=== PATIENT | female | born 1995 | race American Indian/Alaskan Native ===

== ENCOUNTER 2017-06-27 01:42 | Emergency (ER) | payer SELFPAY | END 2017-06-27 02:05 | disposition left against medical advice (07) | LOC: ED 01:42 | DX: Z53.21 Procedure and treatment not carried out due to patient leaving prior to being seen by health care provider (principal) ==

== ENCOUNTER 2018-10-24 21:59 | Emergency (ER) | payer SELFPAY ==
--- NOTE | 2018-10-24 22:08 | Emergency Department Report ---
Blank Doc - Documentation Documentation: This is a 23-year-old female that presents with vaginal sores and rash. This initial assessment/diagnostic orders/clinical plan/treatment(s) is/are subject to change based on patient's health status, clinical progression and re- assessment by fellow clinical providers in the ED. Further treatment and workup at subsequent clinical providers discretion. Patient/guardians urged not to elope from the ED as their condition may be serious if not clinically assessed and managed. Initial orders include: 1- Patient sent to [facility] for further evaluation and treatment
[2018-10-24 22:11] VITALS: BP 118/66
[2018-10-24] MEDS ORDERED: ROCEPHIN IM ONE (22:44)
[2018-10-24] MEDS ORDERED: ZITHROMAX PO ONE (22:44)
[2018-10-24] MEDS ORDERED: XYLOCAINE 1% MPF 5 mL INFILTRATI ONE (22:45)
[2018-10-24 22:59] LABS: Bilirubin,Urine NEG (Negative); Blood,Urine MOD (Negative); Color,Urine Yellow (Yellow); Mucus,Urine FEW /HPF
[2018-10-24 23:03] LABS: HCG Qualitative,Urine Negative (Negative)
--- NOTE | 2018-10-24 23:12 | Emergency Department Report ---
ED Female HPI - General Chief complaint: Urogenital-Female Stated complaint: RASH/VAGINAL PAIN/TOOTH PAIN Time Seen by Provider: 10/24/18 22:07 Source: patient Mode of arrival: Ambulatory Limitations: No Limitations - History of Present Illness Initial comments: This is a 23-year-old female that presents with vaginal sores and rash. states 1 week sores are round yellow core pain pt denies vagina discharge or pelvic pain, pt is request prophylitc tx for STD MD Complaint: possible STD Onset/Timin -: week(s) Location: perineum Radiation: non-radiating Severity: moderate Severity scale (0 -10): 5 Quality: burning Consistency: constant Improves with: none Worsens with: movement, other (palpation) Are you Now?: No Last Menstrual Period: 10/24/18 EDC: 07/31/19 Associated Symptoms: rash - Related Data Sexually active: Yes Previous Rx's Medication Instructions Recorded Last Taken Type Doxylamine Succinate/Vit B6 1 each PO Q6HR PRN #30 tablet. 09/17/15 Unknown Rx [Arabella Zeng 10-10 mg Tablet] Nitrofurantoin [place]/M-Cryst 100 mg PO Q12HR #14 capsule 09/17/15 Unknown Rx [Macrobid CAP] Vit Calc,Iron,Folic 1 each PO QDAY #30 tablet 09/17/15 Unknown Rx [ Vitamins] Nitrofurantoin [place]/M-Cryst 100 mg PO Q12HR #14 capsule 11/02/15 Unknown Rx [Macrobid CAP] Doxycycline Monohydrate 100 mg PO BID #20 capsule 10/24/18 Unknown Rx Valacyclovir HCl [Valtrex] 1,000 mg PO BID #20 tablet 10/24/18 Unknown Rx metroNIDAZOLE [Flagyl] 500 mg PO BID 10 Days #20 tab 10/24/18 Unknown Rx Allergies Allergy/AdvReac Type Severity Reaction Status Date / Time risperidone [From Risperdal] Allergy Rash Verified 09/16/15 18:56 ED Review of Systems ROS: Stated complaint: RASH/VAGINAL PAIN/TOOTH PAIN Other details as noted in HPI Constitutional: denies: chills, fever Eyes: denies: eye pain, eye discharge, vision change ENT: as per HPI Respiratory: no symptoms reported Cardiovascular: denies: chest pain, palpitations Endocrine: no symptoms reported Gastrointestinal: denies: abdominal pain, nausea, diarrhea Genitourinary: dyspareunia, other (ulcer perinium ). denies: urgency, dysuria, discharge, abnormal menses Musculoskeletal: denies: back pain, joint swelling, arthralgia Skin: denies: rash, lesions Neurological: denies: headache, weakness, paresthesias Psychiatric: denies: anxiety, depression Hematological/Lymphatic: denies: easy bleeding, easy bruising ED Past Medical Hx - Past Medical History Previous Medical History?: Yes Hx Psychiatric Treatment: Yes (bipolar) Additional medical history: Miscarriage x 1 - Surgical History Past Surgical History?: Yes Additional Surgical History: - Social History Smoking Status: Current Every Day Smoker Substance Use Type: Alcohol - Medications Home Medications: Home Medications Medication Instructions Recorded Confirmed Last Taken Type Doxylamine Succinate/Vit B6 1 each PO Q6HR PRN #30 tablet. 09/17/15 Unknown Rx [Dictrinh Zeng 10-10 mg Tablet] Nitrofurantoin [place]/M-Cryst 100 mg PO Q12HR #14 capsule 09/17/15 Unknown Rx [Macrobid CAP] Vit Calc,Iron,Folic 1 each PO QDAY #30 tablet 09/17/15 Unknown Rx [ Vitamins] Nitrofurantoin [place]/M-Cryst 100 mg PO Q12HR #14 capsule 11/02/15 Unknown Rx [Macrobid CAP] Doxycycline Monohydrate 100 mg PO BID #20 capsule 10/24/18 Unknown Rx Valacyclovir HCl [Valtrex] 1,000 mg PO BID #20 tablet 10/24/18 Unknown Rx metroNIDAZOLE [Flagyl] 500 mg PO BID 10 Days #20 tab 10/24/18 Unknown Rx ED Physical Exam - General Limitations: No Limitations General appearance: alert, in no apparent distress - Head Head exam: Present: atraumatic, normocephalic - Eye Eye exam: Present: normal appearance, PERRL, EOMI Pupils: Present: normal accommodation - ENT ENT exam: Present: mucous membranes moist. Absent: normal orophraynx, TM's normal bilaterally, normal external ear exam - Neck Neck exam: Present: normal inspection, full ROM. Absent: lymphadenopathy - Respiratory Respiratory exam: Present: normal lung sounds bilaterally, chest wall tenderness. Absent: respiratory distress, rales, stridor - Cardiovascular Cardiovascular Exam: Present: regular rate, normal rhythm, normal heart sounds. Absent: systolic murmur, diastolic murmur, rubs, gallop - GI/Abdominal GI/Abdominal exam: Present: soft, tenderness (superpubic ), normal bowel sounds. Absent: distended, guarding, rebound, rigid, bruit, hernia - Rectal Rectal exam: Present: deferred - External exam: Present: erythema, lesions. Absent: swelling, lacerations, e cchymosis, bleeding Speculum exam: Present: erythema, vaginal discharge (yellow green malodorous), cervical discharge. Absent: vaginal bleeding, laceration Bi-manual exam: Absent: cervical motion tendernes - Extremities Exam Extremities exam: Present: normal inspection, full ROM, normal capillary refill. Absent: tenderness - Back Exam Back exam: Present: normal inspection, full ROM, tenderness. Absent: CVA tenderness (R), CVA tenderness (L), muscle spasm, paraspinal tenderness, rash noted - Neurological Exam Neurological exam: Present: alert, oriented X3, CN II-XII intact, normal gait - Psychiatric Psychiatric exam: Present: normal affect, normal mood - Skin Skin exam: Present: warm, dry, intact, normal color. Absent: rash ED Course Vital Signs 10/24/18 22:07 Temperature 97.8 F Pulse Rate 94 H Respiratory 18 Rate Blood Pressure 118/66 [Left] O2 Sat by Pulse 98 Oximetry ED Medical Decision Making - Medical Decision Making vagaal exam consistant with HSV Genital, plan tx for STD exposure, rocephin, azithromycin dc to home with flagyl, valtrax, macrobid, follow up with pcp in 2- 3 dys pt verbalized agreement and understanding of discharge plan. pt will follow up with health department for HIV and HSV screening. pt dc in stable condition pt with nad at at this time. Critical care attestation.: If time is entered above; I have spent that time in minutes in the direct care of this critically ill patient, excluding procedure time. ED Disposition Clinical Impression: STD (sexually transmitted disease) Disposition: DC-01 TO HOME OR SELFCARE Is pt being admited?: No Does the pt Need Aspirin: No Condition: Stable Instructions: Sexually Transmitted Diseases (ED) Prescriptions: Doxycycline Monohydrate 100 mg PO BID #20 capsule metroNIDAZOLE [Flagyl] 500 mg PO BID 10 Days #20 tab Valacyclovir HCl [Valtrex] 1,000 mg PO BID #20 tablet Referrals: CRISTIAN BURTON MD [Staff Physician] - 2-3 Days [facility] [Outside] - 2-3 Days Forms: Work/School Release Form(ED) Time of Disposition: 23:25
== END 2018-10-24 23:32 | disposition home or self-care (01) ==
LOC: ED 21:59
DX: A64 Unspecified sexually transmitted disease (principal); F31.9 Bipolar disorder, unspecified; F17.200 Nicotine dependence, unspecified, uncomplicated; Z98.890 Other specified postprocedural states; Z88.8 Allergy status to other drugs, medicaments and biological substances
CPT/HCPCS: 81001; 81025; 87076; 87086; 87186; 87210; 87591; 96372; 99284; J0696

== ENCOUNTER 2019-10-23 21:08 | Emergency (ER) | payer OTHER ==
[2019-10-23] MEDS ORDERED: propofoL 200 MG/20 ML VIAL IV ONE (21:24)
[2019-10-23] MEDS ORDERED: ETOMIDATE 20 MG/10 ML INJ IV ONE (21:24)
[2019-10-23] MEDS ORDERED: SODIUM CHLORIDE 0.9% 1000 ML 1,000 ML IV ONE ×2 (21:24→21:47)
--- NOTE | 2019-10-23 21:25 | Emergency Department Report ---
ED Upper Extremity Inj HPI - General Chief Complaint: Shoulder Injury Stated Complaint: RT SHOULDER DISLOCATION Time Seen by Provider: 10/23/19 21:10 Source: patient, EMS Mode of arrival: Stretcher Limitations: No Limitations - History of Present Illness Initial Comments: Patient is a 24-year-old female that presents emergency room with complaints of right shoulder pain. Patient states that her shoulder pain is a 10 out of 10. Patient states she was swinging a gallon jug of water and had a pop and a severe pain. Patient states she was trying to throw the jug of water. Patient states the pain is a 10 out of 10. Pain states the pain is better with rest and worse with movement. Patient states she is never had this pain or dislocated shoulder before. Patient states she has had anesthesia in the past without any difficulties. Patient states she had a and did not have any surgical or anesthesia complications. Patient denies allergies to medications. Patient states her last oral intake was 6 hours ago. Patient's last menstrual period 2 weeks ago. MD Complaint: Injury to:: right, shoulder -: Sudden Other Extremity Injury: Shoulder: Right Other Injuries: none Handedness: right Severity scale (0 -10): 10 Improves With: rest Worsens With: immobilization, movement of extremity Context: injury Associated Symptoms: heard/felt popping sensat. denies: weakness, numbness, neck pain, suspects foreign body, nausea/vomiting - Related Data Previous Rx's Medication Instructions Recorded Last Taken Type Doxylamine Succinate/Vit B6 1 each PO Q6HR PRN #30 tablet. 09/17/15 Unknown Rx [Arabella Zeng 10-10 mg Tablet] Nitrofurantoin [place]/M-Cryst 100 mg PO Q12HR #14 capsule 09/17/15 Unknown Rx [Macrobid CAP] Vit Calc,Iron,Folic 1 each PO QDAY #30 tablet 09/17/15 Unknown Rx [ Vitamins] Nitrofurantoin [place]/M-Cryst 100 mg PO Q12HR #14 capsule 11/02/15 Unknown Rx [Macrobid CAP] Doxycycline Monohydrate 100 mg PO BID #20 capsule 10/24/18 Unknown Rx Valacyclovir HCl [Valtrex] 1,000 mg PO BID #20 tablet 10/24/18 Unknown Rx metroNIDAZOLE [Flagyl] 500 mg PO BID 10 Days #20 tab 10/24/18 Unknown Rx Acetaminophen/Codeine [Tylenol 1 tab PO Q4HR PRN #12 tablet 10/23/19 Unknown Rx /Codeine # 3 tab] Allergies Allergy/AdvReac Type Severity Reaction Status Date / Time risperidone [From Risperdal] Allergy Rash Verified 09/16/15 18:56 ED Review of Systems ROS: Stated complaint: RT SHOULDER DISLOCATION Other details as noted in HPI Constitutional: denies: chills, fever Eyes: denies: eye pain, eye discharge, vision change ENT: denies: ear pain, throat pain Respiratory: denies: cough, shortness of breath, wheezing Cardiovascular: denies: chest pain, palpitations Endocrine: no symptoms reported Gastrointestinal: denies: abdominal pain, nausea, diarrhea Genitourinary: denies: urgency, dysuria, discharge Musculoskeletal: denies: back pain, joint swelling, arthralgia Skin: denies: rash, lesions Neurological: denies: headache, weakness, paresthesias Psychiatric: denies: anxiety, depression Hematological/Lymphatic: denies: easy bleeding, easy bruising ED Past Medical Hx - Past Medical History Previous Medical History?: Yes Hx Psychiatric Treatment: Yes (bipolar, depression,, Borderline Personality Disorder) Additional medical history: Miscarriage x 1 - Surgical History Past Surgical History?: Yes Additional Surgical History: x 2 - Social History Smoking Status: Current Every Day Smoker Substance Use Type: Alcohol - Medications Home Medications: Home Medications Medication Instructions Recorded Confirmed Last Taken Type Doxylamine Succinate/Vit B6 1 each PO Q6HR PRN #30 tablet. 09/17/15 Unknown Rx [Arabella Zeng 10-10 mg Tablet] Nitrofurantoin [place]/M-Cryst 100 mg PO Q12HR #14 capsule 09/17/15 Unknown Rx [Macrobid CAP] Vit Calc,Iron,Folic 1 each PO QDAY #30 tablet 09/17/15 Unknown Rx [ Vitamins] Nitrofurantoin [place]/M-Cryst 100 mg PO Q12HR #14 capsule 11/02/15 Unknown Rx [Macrobid CAP] Doxycycline Monohydrate 100 mg PO BID #20 capsule 10/24/18 Unknown Rx Valacyclovir HCl [Valtrex] 1,000 mg PO BID #20 tablet 10/24/18 Unknown Rx metroNIDAZOLE [Flagyl] 500 mg PO BID 10 Days #20 tab 10/24/18 Unknown Rx Acetaminophen/Codeine [Tylenol 1 tab PO Q4HR PRN #12 tablet 10/23/19 Unknown Rx /Codeine # 3 tab] ED Physical Exam - General Limitations: No Limitations General appearance: alert, in no apparent distress - Head Head exam: Present: atraumatic, normocephalic - Eye Eye exam: Present: normal appearance - ENT ENT exam: Present: mucous membranes moist - Neck Neck exam: Present: normal inspection - Respiratory Respiratory exam: Present: normal lung sounds bilaterally. Absent: respiratory distress - Cardiovascular Cardiovascular Exam: Present: regular rate, normal rhythm. Absent: systolic murmur, diastolic murmur, rubs, gallop - GI/Abdominal GI/Abdominal exam: Present: soft, normal bowel sounds - Extremities Exam Extremities exam: Present: normal inspection (Except for right shoulder), full ROM (Except for with right shoulder), tenderness (To right shoulder) - Back Exam Back exam: Present: normal inspection - Neurological Exam Neurological exam: Present: alert, oriented X3 - Psychiatric Psychiatric exam: Present: normal affect, normal mood - Skin Skin exam: Present: warm, dry, intact, normal color. Absent: rash ED Course Vital Signs 10/23/19 10/23/19 10/23/19 21:15 21:20 21:40 Temperature 98.4 F Temperature [ 98.8 F Pre-Procedure] Pulse Rate 111 H 109 H Pulse Rate [ 106 H Intra-Procedure ] Pulse Rate [ 95 H Post-Procedure] Pulse Rate [Pre 103 H -Procedure] Respiratory 18 18 Rate Respiratory 11 L Rate [Intra- Procedure] Respiratory 11 L Rate [Post- Procedure] Respiratory 14 Rate [Pre- Procedure] Blood Pressure 138/86 Blood Pressure 157/85 [Intra- Procedure] Blood Pressure 199/76 138/86 [Left] Blood Pressure 159/78 [Post-Procedure ] Blood Pressure 130/82 [Pre-Procedure] O2 Sat by Pulse 98 100 Oximetry O2 Sat by Pulse 99 Oximetry [ Intra-Procedure ] O2 Sat by Pulse 99 Oximetry [Post -Procedure] O2 Sat by Pulse 100 Oximetry [Pre- Procedure] 10/23/19 10/23/19 10/23/19 21:45 22:00 22:15 Temperature Temperature [ Pre-Procedure] Pulse Rate 103 H 97 H 88 Pulse Rate [ Intra-Procedure ] Pulse Rate [ Post-Procedure] Pulse Rate [Pre -Procedure] Respiratory 18 18 18 Rate Respiratory Rate [Intra- Procedure] Respiratory Rate [Post- Procedure] Respiratory Rate [Pre- Procedure] Blood Pressure Blood Pressure [Intra- Procedure] Blood Pressure 157/75 129/83 134/79 [Left] Blood Pressure [Post-Procedure ] Blood Pressure [Pre-Procedure] O2 Sat by Pulse 100 99 100 Oximetry O2 Sat by Pulse Oximetry [ Intra-Procedure ] O2 Sat by Pulse Oximetry [Post -Procedure] O2 Sat by Pulse Oximetry [Pre- Procedure] 10/23/19 10/23/19 22:30 23:00 Temperature Temperature [ Pre-Procedure] Pulse Rate 97 H 89 Pulse Rate [ Intra-Procedure ] Pulse Rate [ Post-Procedure] Pulse Rate [Pre -Procedure] Respiratory 18 18 Rate Respiratory Rate [Intra- Procedure] Respiratory Rate [Post- Procedure] Respiratory Rate [Pre- Procedure] Blood Pressure Blood Pressure [Intra- Procedure] Blood Pressure 136/79 126/77 [Left] Blood Pressure [Post-Procedure ] Blood Pressure [Pre-Procedure] O2 Sat by Pulse 99 99 Oximetry O2 Sat by Pulse Oximetry [ Intra-Procedure ] O2 Sat by Pulse Oximetry [Post -Procedure] O2 Sat by Pulse Oximetry [Pre- Procedure] - Reevaluation(s) Reevaluation #1: Initial evaluation done. Patient clearly has a right shoulder dislocation. We will do a shoulder x-ray. Patient consented to moderate sedation and reduction. 10/23/19 21:24 Reevaluation #2: Moderate sedation and reduction done. No complications noted. See procedure note. We will continue to monitor patient. Patient placed in sling. 10/23/19 21:45 Reevaluation #3: Patient awake alert and oriented x3. Patient answering questions appropriately. We will continue to monitor patient patient's post reduction film shows a satisfactory reduction. 10/23/19 22:11 Reevaluation #4: Patient is alert oriented x4.. Patient ambulatory in the ER. Patient tolerated p.o. intake. Patient states the pain has improved slightly. I discussed all results and clinical findings with patient. I discussed plan of care with patient. Patient agrees with plan of care. Patient is stable for discharge. Patient will be discharged home. Patient given discharge instructions. Patient voiced understanding of discharge instructions. 10/23/19 23:00 - Moderate Sedation Indications: fracture/dislocation redu Presedation Evaluation: Last intake 6 hours ago. ASA Class: I Mallampati Airway Score: 1 Preparation: flight operations coordinator applied, pulse oximeter, capnometry used, supplemental O2 applied, suction/airway equipment at bedside, IV secured IV Etomidate Dose (mgs): 12 Complications: none Patient Tolerated Procedure: well, no complications - Orthopedic Joint Reduction Joint #1 Consent Obtained: verbal consent, written consent Time Out Performed: Yes Side: right Joint Reduction Location: shoulder Analgesia: moderate sedation Shoulder Technique Used (if applicable): traction/counter-traction Technique Used: traction/counter-traction Post-Reduction Neuro Exam: intact Post-Reduction Vascular Exam: intact Post Reduction X-Ray Obtained: Yes Post Reduction X-Ray Results: reduced Splint Applied: Yes Patient Tolerated Procedure: well, no complications ED Medical Decision Making - Radiology Data Radiology results: report reviewed, image reviewed interpreted by me: First x-ray shows a right anterior dislocation. Second x-ray shows satisfactory reduction RIGHT SHOULDER 2 VIEWS INDICATION / CLINICAL INFORMATION: Dislocation. COMPARISON: None available. FINDINGS: BONES / JOINT(S): There is inferior and medial dislocation of the humeral head in relationship to the acromion. There is a possible Hill-Sachs lesion. No significant arthritis. SOFT TISSUES: No significant abnormality. ADDITIONAL FINDINGS: The visualized right lung is clear. IMPRESSION: Anterior dislocation of the right shoulder with a possible Hill- Sachs lesion. RIGHT SHOULDER 1 VIEW 9:45 PM INDICATION / CLINICAL INFORMATION: Status post reduction COMPARISON: Earlier today at 9:24 PM. FINDINGS: BONES / JOINT(S): The previously described anterior dislocation of the shoulder has been reduced. The humeral head is now well situated within the glenoid fossa. There is a Hill-Sachs lesion involving the humeral head superolaterally. SOFT TISSUES: No significant abnormality. ADDITIONAL FINDINGS: The visualized portion of the right lung is clear. IMPRESSION: Interval reduction of the anterior dislocation of the right shoulder. There is an associated Hill-Sachs lesion. - Medical Decision Making Patient is a 24-year-old female that presents emergency room with a right shoulder dislocation. Patient had a initial x-ray which showed an anterior dislocation. Patient given moderate sedation with etomidate and her right shoulder was easily reduced. Patient monitored for several hours back to baseline. Patient ambulatory and alert and oriented x4 prior to discharge. Patient tolerated p.o. intake. Patient's vital signs monitored the entire time. Patient's post reduction film shows a satisfactory reduction. Patient given discharge instructions. Patient stable for discharge. Patient referred to a orthopedist for further evaluation. - Differential Diagnosis Dislocation, shoulder pain, fracture, strain sprain Critical Care Time: Yes Critical care time in (mins) excluding proc time.: 35 Critical care attestation.: If time is entered above; I have spent that time in minutes in the direct care of this critically ill patient, excluding procedure time. Critical Care Time: 35 minutes ED Disposition Clinical Impression: Shoulder pain Qualifiers: Chronicity: acute Laterality: right Qualified Code(s): M25.511 - Pain in right shoulder Shoulder dislocation Qualifiers: Encounter type: initial encounter Laterality: right Qualified Code(s): S43.004A - Unspecified dislocation of right shoulder joint, initial encounter Disposition: TO HOME OR SELFCARE Is pt being admited?: No Does the pt Need Aspirin: No Condition: Stable Instructions: Shoulder Dislocation (ED), Moderate Sedation (ED) Additional Instructions: Patient to follow-up with primary care in 2 to 3 days. Patient to follow-up with orthopedist in 2 to 3 days. Patient to keep right extremity in sling until cleared by orthopedist. Patient to rest. Patient to increase water. Patient to avoid strenuous exercise or heavy lifting until cleared by orthopedist. Patient to take Tylenol or ibuprofen as needed for pain. P Patient to return to the ER if condition worsens, changes or new symptoms arise. Prescriptions: Acetaminophen/Codeine [Tylenol /Codeine # 3 tab] 1 tab PO Q4HR PRN #12 tablet PRN Reason: Pain Referrals: DENISE CASH MD [Primary Care Provider] - 2-3 Days JOHN HART MD [Staff Physician] - 2-3 Days Time of Disposition: 23:01
[2019-10-23] MEDS ORDERED: KETOROLAC 30 MG/1 ML INJ ONE (22:03)
[2019-10-23] MEDS ORDERED: KETOROLAC 30 MG/1 ML INJ IV ONE (22:16)
[2019-10-23 23:27] VITALS: BP 126/77
== END 2019-10-23 23:20 | disposition home or self-care (01) ==
LOC: ED 21:08
DX: S43.004A Unspecified dislocation of right shoulder joint, initial encounter (principal); F31.9 Bipolar disorder, unspecified; Z79.899 Other long term (current) drug therapy; Z88.6 Allergy status to analgesic agent; X58.XXXA Exposure to other specified factors, initial encounter; Y93.89 Activity, other specified; Y92.89 Other specified places as the place of occurrence of the external cause; Y99.8 Other external cause status
CPT/HCPCS: 23650; 73020; 73030; 96374; 99284; J1885; J2704; J7030

== ENCOUNTER 2020-06-13 19:15 | Emergency (ER) | payer OTHER ==
[2020-06-13 19:27] VITALS: BP 125/77
[2020-06-13] MEDS ORDERED: ACETAMINOPHEN 500 MG TAB PO ONE (19:42)
[2020-06-13] MEDS ORDERED: PROMETHAZINE 25 MG TAB PO ONE (19:42)
--- NOTE | 2020-06-13 19:45 | Emergency Department Report ---
ED Female HPI - General Chief complaint: Urogenital-Female Stated complaint: SHARP ABD PAIN/FREQUENT URINATION/CHILLS/SOB Source: patient Mode of arrival: Ambulatory Limitations: No Limitations - History of Present Illness Initial comments: Patient is a A2 25 yo AA female with a h/o Bipolar d/o, anxiety and depression and Borderline personality d/o and morbid obesity who presents to the ED with c/o acute onset persistent right flank pain that radiates to the suprapubic area with intermittent nausea and vomiting, dysuria, urinary urgency and frequency for the last 1 week, worse in the last 2 days. Patient states that she has had similar symptoms in the past and was diagnosed with a UTI. Patient states that she believes that she may be having another round of UTI. Patient denies diarrhea, fever, chills, vaginal discharge, vaginal bleeding, dizziness, cough, chest pain, headache or sore throat and headache MD Complaint: dysuria, other (right flank pain) -: Sudden, week(s) (1) Location: suprapubic, other (right flank) Radiation: suprapubic, R flank Severity: severe Severity scale (0 -10): 8 Quality: sharp, aching Consistency: constant Improves with: none Worsens with: movement Are you Now?: No (Unsure) Last Menstrual Period: 05/10/20 EDC: 02/14/21 Associated Symptoms: denies other symptoms, abdominal pain, nausea/vomiting, dysuria. denies: vaginal discharge, vaginal bleeding, fever/chills, headaches, loss of appetite, hematuria, rash, seizure, shortness of breath, syncope, other - Related Data Sexually active: Yes : 4 Para: 2 A: 2 Previous Rx's Medication Instructions Recorded Last Taken Type Doxylamine Succinate/Vit B6 1 each PO Q6HR PRN #30 tablet. 09/17/15 Unknown Rx [Arabella Zeng 10-10 mg Tablet] Nitrofurantoin Cherokee/M-Cryst 100 mg PO Q12HR #14 capsule 09/17/15 Unknown Rx [Macrobid CAP] Vit Calc,Iron,Folic 1 each PO QDAY #30 tablet 09/17/15 Unknown Rx [ Vitamins] Nitrofurantoin Cherokee/M-Cryst 100 mg PO Q12HR #14 capsule 11/02/15 Unknown Rx [Macrobid CAP] Doxycycline Monohydrate 100 mg PO BID #20 capsule 10/24/18 Unknown Rx Valacyclovir HCl [Valtrex] 1,000 mg PO BID #20 tablet 10/24/18 Unknown Rx metroNIDAZOLE [Flagyl] 500 mg PO BID 10 Days #20 tab 10/24/18 Unknown Rx Acetaminophen/Codeine [Tylenol 1 tab PO Q4HR PRN #12 tablet 10/23/19 Unknown Rx /Codeine # 3 tab] Ibuprofen [Motrin] 800 mg PO Q8HR PRN #24 tablet 06/13/20 Unknown Rx Ondansetron [Zofran Odt] 4 mg PO Q6HR PRN #20 tab.rapdis 06/13/20 Unknown Rx cephALEXin [Keflex] 500 mg PO Q8HR #30 cap 06/13/20 Unknown Rx Allergies Allergy/AdvReac Type Severity Reaction Status Date / Time risperidone [From Risperdal] Allergy Rash Verified 09/16/15 18:56 ED Review of Systems ROS: Stated complaint: SHARP ABD PAIN/FREQUENT URINATION/CHILLS/SOB Other details as noted in HPI Constitutional: denies: chills, fever Eyes: denies: eye pain, eye discharge, vision change ENT: denies: ear pain, throat pain Respiratory: denies: cough, shortness of breath, wheezing Cardiovascular: denies: chest pain, palpitations Endocrine: no symptoms reported Gastrointestinal: abdominal pain (right flank pain, suprapubic pressure), nausea, vomiting. denies: diarrhea Genitourinary: urgency, dysuria, frequency. denies: discharge Musculoskeletal: back pain (lower back pain). denies: joint swelling, arthralgia Skin: denies: rash, lesions Neurological: denies: headache, weakness, paresthesias Psychiatric: denies: anxiety, depression Hematological/Lymphatic: denies: easy bleeding, easy bruising ED Past Medical Hx - Past Medical History Previous Medical History?: Yes Hx Psychiatric Treatment: Yes (bipolar, depression,, Borderline Personality Disorder) Additional medical history: Miscarriage x 1 - Surgical History Past Surgical History?: Yes Additional Surgical History: x 2 - Social History Smoking Status: Current Every Day Smoker Substance Use Type: None - Medications Home Medications: Home Medications Medication Instructions Recorded Confirmed Last Taken Type Doxylamine Succinate/Vit B6 1 each PO Q6HR PRN #30 tablet. 09/17/15 Unknown Rx [Dictrnih Zeng 10-10 mg Tablet] Nitrofurantoin [place]/M-Cryst 100 mg PO Q12HR #14 capsule 09/17/15 Unknown Rx [Macrobid CAP] Vit Calc,Iron,Folic 1 each PO QDAY #30 tablet 09/17/15 Unknown Rx [ Vitamins] Nitrofurantoin [place]/M-Cryst 100 mg PO Q12HR #14 capsule 11/02/15 Unknown Rx [Macrobid CAP] Doxycycline Monohydrate 100 mg PO BID #20 capsule 10/24/18 Unknown Rx Valacyclovir HCl [Valtrex] 1,000 mg PO BID #20 tablet 10/24/18 Unknown Rx metroNIDAZOLE [Flagyl] 500 mg PO BID 10 Days #20 tab 10/24/18 Unknown Rx Acetaminophen/Codeine [Tylenol 1 tab PO Q4HR PRN #12 tablet 10/23/19 Unknown Rx /Codeine # 3 tab] Ibuprofen [Motrin] 800 mg PO Q8HR PRN #24 tablet 06/13/20 Unknown Rx Ondansetron [Zofran Odt] 4 mg PO Q6HR PRN #20 tab.rapdis 06/13/20 Unknown Rx cephALEXin [Keflex] 500 mg PO Q8HR #30 cap 06/13/20 Unknown Rx ED Physical Exam - General Limitations: No Limitations General appearance: alert, in no apparent distress - Head Head exam: Present: atraumatic, normocephalic, normal inspection - Eye Eye exam: Present: normal appearance, PERRL, EOMI Pupils: Present: normal accommodation - ENT ENT exam: Present: normal exam, normal orophraynx, mucous membranes moist, TM's normal bilaterally, normal external ear exam - Neck Neck exam: Present: normal inspection, full ROM - Respiratory Respiratory exam: Present: normal lung sounds bilaterally. Absent: respiratory distress, wheezes, rales, rhonchi, chest wall tenderness, accessory muscle use, decreased breath sounds - Cardiovascular Cardiovascular Exam: Present: normal rhythm, tachycardia, normal heart sounds. Absent: systolic murmur, diastolic murmur, rubs, gallop - GI/Abdominal GI/Abdominal exam: Present: soft, normal bowel sounds. Absent: tenderness, guarding, rebound, hyperactive bowel sounds, hypoactive bowel sounds, organo megaly - Extremities Exam Extremities exam: Present: normal inspection, full ROM, normal capillary refill - Back Exam Back exam: Present: normal inspection, full ROM. Absent: tenderness, CVA tenderness (R), muscle spasm, paraspinal tenderness, vertebral tenderness - Neurological Exam Neurological exam: Present: alert, oriented X3, CN II-XII intact, normal gait, reflexes normal - Psychiatric Psychiatric exam: Present: normal affect, normal mood - Skin Skin exam: Present: warm, dry, intact, normal color. Absent: rash ED Course Vital Signs 06/13/20 19:25 Temperature 98.1 F Pulse Rate 111 H Respiratory 12 Rate Blood Pressure 125/77 O2 Sat by Pulse 98 Oximetry ED Medical Decision Making - Medical Decision Making This is a A2 25 yo AA female with a h/o Bipolar d/o, anxiety and depression and Borderline personality d/o and morbid obesity who presents to the ED with c/o acute onset persistent right flank pain that radiates to the suprapubic area with intermittent nausea and vomiting, dysuria, urinary urgency and frequency for the last 1 week, worse in the last 2 days. Patient states that she has had similar symptoms in the past and was diagnosed with a UTI. Patient states that she believes that she may be having another round of UTI. In the ED, patient is alert and oriented x 3 and is in no acute distress but tarchycardic in triage. Urinalysis shows significant UTI with negative urine HCG test. On reevaluation, patient's tarchicardia resolved. Patient was discharged home on antibiotics, pain medications and antiemetics and was advised to follow up with her PCP in 7- 10 days for reevaluation or return to the ED immediately if symptoms get worse. - Differential Diagnosis UTI; Muscle spasm; Ovarian cyst; Critical care attestation.: If time is entered above; I have spent that time in minutes in the direct care of this critically ill patient, excluding procedure time. ED Disposition Clinical Impression: Acute urinary tract infection, Acute right flank pain Disposition: TO HOME OR SELFCARE Is pt being admited?: No Does the pt Need Aspirin: No Condition: Stable Instructions: Urinary Tract Infection, Adult, [id number], Abdominal Pain, Adult, [id number], Flank Pain, Adult, [id number] Additional Instructions: Lab test results showed acute urinary tract infectin and negative test results. Therefore take medications with food drink plenty of fluids and follow up with your Primary Care Physician in 7-10 days for reevaluation. Return to the ED immediately if symptoms get worse. Prescriptions: cephALEXin [Keflex] 500 mg PO Q8HR #30 cap Ibuprofen [Motrin] 800 mg PO Q8HR PRN #24 tablet PRN Reason: Pain , Severe (7-10) Ondansetron [Zofran Odt] 4 mg PO Q6HR PRN #20 tab.rapdis PRN Reason: Nausea Referrals: [facility] [Provider Group] - 7-10 days Time of Disposition: 20:28 Print Language: SERBIAN
[2020-06-13 20:19] LABS: HCG Qualitative,Urine Negative (Negative)
[2020-06-13 20:20] LABS: Bacteria,Urine 2+ /HPF (Negative); Bilirubin,Urine NEG (Negative); Blood,Urine SM (Negative); Color,Urine Yellow (Yellow); Mucus,Urine FEW /HPF; Urobilinogen,Urine < 2.0 mg/dL (<2.0)
== END 2020-06-13 20:43 | disposition home or self-care (01) ==
LOC: ED 19:15
DX: N39.0 Urinary tract infection, site not specified (principal); R10.33 Periumbilical pain; F17.200 Nicotine dependence, unspecified, uncomplicated; F31.9 Bipolar disorder, unspecified; E66.01 Morbid (severe) obesity due to excess calories; Z79.899 Other long term (current) drug therapy; Z88.8 Allergy status to other drugs, medicaments and biological substances; Z98.890 Other specified postprocedural states; Z68.41 Body mass index [BMI] 40.0-44.9, adult
CPT/HCPCS: 81001; 81025; 87086; 99283; Q0169